=== PATIENT | female | born 1960 | race Caucasian/White ===

== ENCOUNTER → 2016-09-10 | Outpatient (CLI) | payer MEDICARE, OTHER ==
--- NOTE | 2016-09-10 10:33 | ECHOF ---
Referral Reason:I21.19 abn ekg MEASUREMENTS -------- HEIGHT: 165.1 cm WEIGHT: 68.0 kg BP: IVSd: 1.1 cm (0.6 - 1.1) LVIDd: 4.1 cm (3.9 - 5.3) LVPWd: 1.2 cm (0.6 - 1.1) IVSs: 1.3 cm LVIDs: 3.3 cm LVPWs: 1.1 cm LAESV Index (A-L): 26.05 ml/m Ao Diam: 3.2 cm (2.0 - 3.7) AV Cusp: 1.4 cm (1.5 - 2.6) LA Diam: 3.3 cm (2.7 - 3.8) MV EXCURSION: 15.488 mm (> 18.000) MV EF SLOPE: 67 mm/s (70 - 150) EPSS: 0.5 cm MV E Abhishek: 0.39 m/s MV DecT: 229 ms MV A Abhishek: 0.50 m/s MV E/A Ratio: 0.78 RAP: 5.00 mmHg RVSP: 23.31 mmHg FINDINGS -------- Sinus rhythm. This was a technically adequate study. There is mild concentric left ventricular hypertrophy. Overall left ventricular systolic function is low-normal with, an EF between 50 - 55 %. The right ventricle is normal in size. Normal LA size by volume 22+/-6 ml/m2. The right atrial size is normal. There is mild aortic valve sclerosis. There is no evidence of aortic regurgitation. The mitral valve leaflets are mildly thickened. Nsef-ly-xuufgydi mitral regurgitation is present. Mild tricuspid regurgitation present. Right ventricular systolic pressure is normal at < 35 mmHg. There is no evidence of pulmonary hypertension. The aortic root size is normal. There is no pericardial effusion. CONCLUSIONS -------- 1. There is mild concentric left ventricular hypertrophy. 2. The aortic root size is normal. 3. There is no pericardial effusion. 4. Overall left ventricular systolic function is low-normal with, an EF between 50 - 55 %. 5. Normal LA size by volume 22+/-6 ml/m2. 6. There is mild aortic valve sclerosis. 7. The mitral valve leaflets are mildly thickened. 8. Jsvq-lp-jricqfoc mitral regurgitation is present. 9. Mild tricuspid regurgitation present. 10. Right ventricular systolic pressure is normal at < 35 mmHg. 11. There is no evidence of pulmonary hypertension. [employer] ATTENDANT: Divine Mccrary RDCS
--- NOTE | 2016-09-10 10:47 | MM ---
Reason for exam: clinical finding. Last mammogram was performed 1 year and 8 months ago. History: Patient is postmenopausal. Family history of breast cancer in maternal grandmother at age 78 and breast cancer in cousin at age 28. Silicone gel implants in both breasts, 1985. Indicated problem(s): pain in both breasts. Physical Findings: Nurse did not find any significant physical abnormalities on exam. MG 3D Diag Mammo Imp W/Cad KEIRY Bilateral CC and MLO view(s) were taken. Prior study comparison: January 22, 2015, mammogram. The breast tissue is heterogeneously dense. This may lower the sensitivity of mammography. There are bilateral breast prothesis. Calcification is around left breast prothesis. No significant new findings when compared with previous films. These results were verbally communicated with the patient and result sheet given to the patient on 09/10/16. ASSESSMENT: Benign, BI-RAD 2 RECOMMENDATION: Routine screening mammogram of both breasts in 1 year.
--- NOTE | 2016-09-10 11:45 | XR ---
EXAMINATION TYPE: XR chest 2V DATE OF EXAM: 09/10/2016 9:33 AM COMPARISON: NONE INDICATION: Hypertension TECHNIQUE: Single frontal view of the chest is obtained. FINDINGS: The heart size is normal. The pulmonary vasculature is normal. The lungs are clear. Note is made of bilateral breast prostheses. IMPRESSION: 1. No acute pulmonary process.
--- NOTE | 2016-09-10 11:46 | XR ---
EXAMINATION TYPE: XR cervical spine comp DATE OF EXAM: 09/10/2016 9:33 AM COMPARISON: NONE HISTORY: Neck pain, hypertension TECHNIQUE: 5 view cervical spine FINDINGS: Bilateral foraminal narrowing. This may be accentuated due to incomplete rotation on the ri ght oblique view. Degenerative disc changes are present C5-6 C6-7. Some endplate spurring posteriorly may be present C4-5 C5-6 C6-7. The prevertebral space normal. Posterior spinal lamellar line is inta ct. Odontoid appears unremarkable. Facet degenerative changes are noted. IMPRESSION: 1. Foraminal narrowing likely greater on the left in the mid to lower cervical spine. However, there is some limitation with incomplete rotation of the right oblique view. 2. Degenerative disc changes mid and lower cervical spine
== END | disposition home or self-care (01) ==
LOC: RADECHMAIN 08:42
PROVIDERS: ATTEND Internal Medicine
DX: I10 Essential (primary) hypertension (principal); I21.19 ST elevation (STEMI) myocardial infarction involving other coronary artery of inferior wall; N64.4 Mastodynia
CPT/HCPCS: 93306; 71020; 72050; G0204; G0279

== ENCOUNTER → 2017-03-13 | Outpatient (CLI) | payer MEDICARE ==
[2017-03-13 17:37] LABS: Basophils # (A) 0.1 k/uL (0-0.2); Basophils % (A) 1 %; CH 33.2; CHCM 35.3; Eosinophils # (A) 0.1 k/uL (0-0.7); Eosinophils % (A) 1 %; HCT 44.5 % (34.0-46.0); HGB 15.1 gm/dL (11.4-16.0); Luc # (Auto) 0.17; Luc % (Auto) 2; Lymphocytes # (A) 4.2 k/uL (1.0-4.8); Lymphocytes % (A) 40 %; MCH 32.1 pg (25.0-35.0); MCV 94.4 fL (80.0-100.0); Monocytes # (A) 0.4 k/uL (0-1.0); Monocytes % (A) 4 %; Neutrophils # (A) 5.6 k/uL (1.3-7.7); Neutrophils % (A) 53 %; RBC 4.71 m/uL (3.80-5.40); RDW 14.4 % (11.5-15.5); WBC 10.5 k/uL (3.8-10.6); WBC (Perox) 10.15
[2017-03-13 17:40] LABS: Ionized Calcium 4.8 mg/dL (4.5-5.3)
[2017-03-13 17:52] LABS: Anion Gap 10 mmol/L; Blood Urea Nitrogen 14 mg/dL (7-17); Calcium 9.2 mg/dL (8.4-10.2); Carbon Dioxide 26 mmol/L (22-30); Chloride 105 mmol/L (98-107); Glucose 104 mg/dL (74-99); Non-African American GFR(MDRD) >60 (>60 ml/min/1.73 sqM); Potassium 4.3 mmol/L (3.5-5.1); Sodium 141 mmol/L (137-145)
== END | disposition home or self-care (01) ==
LOC: LABWHC1 17:20
PROVIDERS: ATTEND Psychiatry & Neurology Vascular Neurology
DX: N18.2 Chronic kidney disease, stage 2 (mild) (principal)
CPT/HCPCS: 36415; 80048; 82330; 85025

== ENCOUNTER → 2017-04-04 | Outpatient (CLI) | payer MEDICARE ==
--- NOTE | 2017-04-05 12:48 | MR ---
EXAMINATION TYPE: MR brain wo con DATE OF EXAM: 04/04/2017 COMPARISON: 02/23/2015 HISTORY: Encephalopathy, unspecified CONTRAST: Performed utilizing 0 mL intravenous Gadavist gadolinium contrast. TECHNIQUE: Multiplanar, multiecho imaging on a 3.0 Jennie magnet is performed through the brain. Stud y is performed within 24 hours of arrival to the hospital. The craniovertebral junction is normal. The pituitary is normal. Diffusion-weighted imaging is performed. No abnormal hyperintensity is present to suggest an acute i ntracranial infarct or acute ischemic change. White matter changes are in the periventricular region especially noted through the right posterior p arietal and occipital regions. Additional punctate areas are scattered through the frontal lobes bila terally. Centrum semiovale and subcortical white matter changes are evident. Findings are nonspecific . Multiple sclerosis, microvascular ischemic change vasculitis and Lyme disease could be considered. Ventricles and sulci are slightly prominent for the patient age. This exam is compared with 2014. Findings appear more extensive over the interval. Consider additiona l workup with laboratory findings clinical findings and postcontrast MRI. IMPRESSIONS: 1. Increasing scattered white matter changes throughout the brain. Differential is discussed above. F indings are mildly progressive from 2015.
== END | disposition home or self-care (01) ==
LOC: RADMRIMAIN 14:14
PROVIDERS: ATTEND Psychiatry & Neurology Vascular Neurology
DX: R90.82 White matter disease, unspecified (principal)
CPT/HCPCS: 70551

== ENCOUNTER → 2018-04-06 | Outpatient (CLI) | payer MEDICARE ==
--- NOTE | 2018-04-07 01:41 | XR ---
EXAMINATION TYPE: XR chest 2V DATE OF EXAM: 04/06/2018 COMPARISON: 09/10/2016 HISTORY: 57-year-old female presurgical evaluation, hypertension, history of cancer TECHNIQUE: Frontal and lateral views FINDINGS: The cardiomediastinal silhouette, aorta, and pulmonary vasculature are within normal limits. Hazy low er lung densities related to overlying soft tissue. Lungs and pleural spaces are clear. Bilateral anum ast implants are demonstrated. IMPRESSION: Stable exam without acute cardiopulmonary process.
== END | disposition home or self-care (01) ==
LOC: RADXRMAIN 16:13
PROVIDERS: ATTEND Internal Medicine
DX: I10 Essential (primary) hypertension (principal)
CPT/HCPCS: 71046

== ENCOUNTER 2018-04-23 14:13 | Inpatient (IN) | payer MEDICARE ==
[2018-04-23 16:51] LABS: Basophils % (A) 1 %; Eosinophils # (A) 0.1 k/uL (0-0.7); Eosinophils % (A) 2 %; HGB 11.9 gm/dL (11.4-16.0); Lymphocytes # (A) 2.2 k/uL (1.0-4.8); Lymphocytes % (A) 37 %; MCH 30.7 pg (25.0-35.0); MCHC 32.9 g/dL (31.0-37.0); MCV 93.1 fL (80.0-100.0); Mean Platelet Volume 7.3; Monocytes # (A) 0.2 k/uL (0-1.0); Monocytes % (A) 4 %; Neutrophils # (A) 3.2 k/uL (1.3-7.7); Neutrophils % (A) 54 %; Platelet Count 210 k/uL (150-450); RBC 3.87 m/uL (3.80-5.40); RDW 13.8 % (11.5-15.5); WBC 5.9 k/uL (3.8-10.6)
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
[2018-04-23 16:57] LABS: Albumin 3.8 g/dL (3.5-5.0); Potassium 4.1 mmol/L (3.5-5.1); Total Bilirubin 0.4 mg/dL (0.2-1.3); Total Protein 6.4 g/dL (6.3-8.2)
[2018-04-23 17:00] LABS: Partial Thromboplastin Time 23.4 sec (22.0-30.0); Prothrombin Time 9.7 sec (9.0-12.0)
[2018-04-23 17:14] LABS: Creatine Kinase MB 2.8 ng/mL (0.0-2.4)
[2018-04-23 17:15] LABS: Troponin I 0.047 ng/mL (0.000-0.034)
--- NOTE | 2018-04-23 17:54 | XR ---
EXAMINATION TYPE: XR chest 2V DATE OF EXAM: 04/23/2018 COMPARISON: April 06, 2018 HISTORY: Altered mental status TECHNIQUE: Frontal and lateral views of the chest are obtained. FINDINGS: Heart and mediastinum are normal. Lungs are clear. Costophrenic angles are clear. There ar e bilateral breast implants with calcification. IMPRESSION: No active cardiopulmonary disease. No change.
--- NOTE | 2018-04-23 17:56 | CT ---
EXAMINATION TYPE: CT brain wo con DATE OF EXAM: 04/23/2018 COMPARISON: None HISTORY: Confusion. CT DLP: 1017.4 mGycm Automated exposure control for dose reduction was used. FINDINGS: Ventricles of normal size. There is no mass effect nor midline shift. There is no sign of intracrania l hemorrhage. The calvarium is intact. IMPRESSION: NEGATIVE HEAD CT SCAN.
[2018-04-23] MEDS ORDERED: NALOXONE 0.4 MG/ML 1 ML VIAL IV PRN (18:35)
[2018-04-23] MEDS ORDERED: ASPIRIN 81 MG PO STA (18:35)
[2018-04-23 22:42] VITALS: BMI 29.0
[2018-04-24] MEDS: CYCLOBENZAPRINE 10 MG TAB PO SCH ×2 (00:08→22:04)
[2018-04-24] MEDS: TOPIRAMATE 25 MG TAB PO SCH ×2 (00:09→22:04)
[2018-04-24] MEDS: HYDROcodone/APAP 10-325MG 1 EACH TAB PO PRN ×2 (00:09→22:04)
[2018-04-24] MEDS: PREGABALIN 75 MG CAP PO SCH ×3 (00:09→22:04)
--- NOTE | 2018-04-24 01:13 | HP ---
HISTORY AND PHYSICAL DATE OF SERVICE: 04/23/2018. CHIEF COMPLAINT: Numbness of the right hand, memory problems, change in mental status. HISTORY OF PRESENT ILLNESS: This 57-year-old woman with a past medical history of multiple medical problems including hypertension, GERD, migraines, depression, bipolar, being followed by primary physician, Dr. Gordo Mata in the outpatient setting, was complaining of numbness of the right hand. Patient also had change in mental status. Family was concerned. Patient was [facility] to [facility] and admitted for further evaluation and treatment. The initial CT scan of the brain showed no acute abnormality. MRI is pending at this time. There is no history of fever, rigors. No history of headache, loss of consciousness or seizures. PAST MEDICAL HISTORY: History of hypertension, GERD, migraines, bipolar, depression. MEDICATIONS: Prior to admission include home medications: 1. Topamax 70 mg at bedtime. 2. Crestor 10 mg daily. 3. Propranolol 60 mg b.i.d. 4. Lyrica 150 mg b.i.d. 5. Omeprazole 20 mg daily. 6. Icard 10 mg daily p.r.n. 7. Flexeril 10 mg at bedtime. 8. Celexa 40 mg daily. ALLERGIES: IODINE, NITROUS OXIDE. FAMILY HISTORY: No history of heart disease or strokes in the family. SOCIAL HISTORY: History of occasional smoking. REVIEW OF SYSTEMS: ENT: As mentioned earlier. CARDIOVASCULAR: No angina. RESPIRATORY: No cough or hemoptysis. GI: No nausea or vomiting. : No dysuria or hematuria. NERVOUS SYSTEM: As mentioned earlier. IMMUNOLOGY:No history of asthma. MUSCULOSKELETAL: As mentioned earlier. DERMATOLOGY: As mentioned earlier. ENDOCRINE: No history of diabetes or hypothyroidism. PSYCHIATRY: As mentioned earlier. PHYSICAL EXAMINATION: Alert, oriented x3. Pulse 75, blood pressure 105/72, respirations 16, temperature 97.2, pulse ox 94% on room air. HEENT: Conjunctivae normal. Oral mucosa moist. NECK: No jugular venous distention. No lymph node enlargement. CARDIOVASCULAR: S1 and S2 muffled. LUNGS: Breath sounds diminished in the bases. Few scattered rhonchi. No crackles. ABDOMEN: Soft, nontender. EXTREMITIES: Legs no edema. NERVOUS SYSTEM: Higher functions as mentioned. Moves all limbs equally. LYMPHATICS: No lymph nodes palpable in the neck, axillae or groin. SKIN: No ulcers or rashes. LABS: CBC within normal limits. Chloride is 108. Troponin 0.047. Total creatinine kinase ntd ASSESSMENT: 1. Numbness and tingling of the right hand, possible acute transient ischemic attack. 2. Troponin 0.04; rule out acute coronary event. 3. Increased creatine kinase. 4. Bipolar depression. 5. Gastroesophageal reflux disease. 6. Hypertension. 7. Migraines. 8. Hysterectomy. RECOMMENDATIONS: Recommend to continue current medications and continue with monitoring and symptomatic treatment. At this time I would recommend Neurology and Psychiatric consultations. Guarded prognosis because of multiple complex medical issues. Further recommendations to follow. 1. The current copy Dr. Genoveva Mata is office. MMERISL / IJN: [id number] / HUY
[2018-04-24] MEDS: PROPRANOLOL LA 60 MG CAP.SA.24H PO SCH ×2 (01:21→10:48)
[2018-04-24 06:54] LABS: Basophils % (A) 1 %; Eosinophils # (A) 0.1 k/uL (0-0.7); Eosinophils % (A) 2 %; HCT 33.9 % (34.0-46.0); HGB 11.3 gm/dL (11.4-16.0); Lymphocytes % (A) 41 %; MCH 30.7 pg (25.0-35.0); MCHC 33.3 g/dL (31.0-37.0); MCV 92.1 fL (80.0-100.0); Mean Platelet Volume 6.9; Monocytes # (A) 0.2 k/uL (0-1.0); Monocytes % (A) 4 %; Neutrophils # (A) 2.4 k/uL (1.3-7.7); Neutrophils % (A) 49 %; Platelet Count 196 k/uL (150-450); RBC 3.68 m/uL (3.80-5.40); RDW 13.6 % (11.5-15.5); WBC 4.9 k/uL (3.8-10.6)
[2018-04-24] MEDS: PANTOPRAZOLE 40 MG TABLET PO SCH (07:16)
[2018-04-24 07:19] LABS: Appearance,Urine Clear (Clear); Bacteria,Urine Rare /hpf; Bilirubin,Urine Negative (Negative); Blood,Urine Trace (Negative); Color,Urine Light Yellow; Glucose,Urine (UA) Negative (Negative); Ketones,Urine Negative (Negative); Leukocyte Esterase,Urine Large (Negative); Mucus,Urine Rare /hpf; Nitrite,Urine Negative (Negative); PH, Urine 5.5 (5.0-8.0); Protein,Urine Negative (Negative); RBC,Urine 3 /hpf (0-5); Specific Gravity,Urine 1.006 (1.001-1.035); Squamous Epithelial Cell,Urine 1 /hpf (0-4); Urobilinogen,Urine <2.0 mg/dL (<2.0); WBC,Urine 15 /hpf (0-5)
[2018-04-24 07:24] LABS: Amphetamine Screen,Urine Not Detected (NotDetected); Barbiturate Screen,Urine Not Detected (NotDetected); Benzodiazepines Screen,Urine Not Detected (NotDetected); Cocaine Screen,Urine Not Detected (NotDetected); Methadone Screen, Urine Not Detected (NotDetected); Opiate Screen,Urine Detected (NotDetected); Oxycodone Screen, Urine Not Detected (NotDetected); Phencyclidine Screen,Urine Not Detected (NotDetected); Tricyclic Antidepressant,Urine Detected (NotDetected); Urn Cannabinoid Scrn Not Detected (NotDetected)
[2018-04-24 07:36] LABS: Calcium 8.9 mg/dL (8.4-10.2)
[2018-04-24] MEDS: CITALOPRAM HYDROBROMIDE 20 MG TAB PO SCH (08:23)
[2018-04-24] MEDS: ASPIRIN 325 MG TAB PO SCH (08:23)
[2018-04-24] MEDS: ATORVASTATIN 20 MG TAB PO SCH (08:23)
[2018-04-24] MEDS: HEPARIN SODIUM,PORCINE 5,000 UNIT/ML 1 ML VIAL SQ SCH ×2 (08:25→22:04)
[2018-04-24] MEDS ORDERED: PREGABALIN 75 MG CAP PO SCH (09:00)
[2018-04-24] MEDS ORDERED: PROPRANOLOL LA 60 MG CAP.SA.24H PO SCH (09:00)
--- NOTE | 2018-04-24 11:59 | MR ---
EXAMINATION TYPE: MR brain wo con DATE OF EXAM: 04/24/2018 11:41 AM. COMPARISON: Previous study dated 04/04/2017. HISTORY: Altered mental status Technique: Multiplanar, multiecho imaging of the brain was obtained without intravenous contrast. FINDINGS: Midline structures are unremarkable. There is a normal craniocervical junction. Echoplanar diffusion imaging is normal. There are normal vascular flow voids. The orbits are unremarkable. There is no evidence of a CP angle mass lesion. There are approximately 30 high signal lesions in the deep white matter tracts and subcortical white matter of both cerebral hemispheres. These may progressed slightly from previous. There is no mass ef fect, midline shift or intracranial blood IMPRESSION: 1. NO ACUTE INTRACRANIAL ABNORMALITY. 2. THERE IS PERHAPS SLIGHT INCREASE IN THE NUMBER OF WHITE MATTER LESIONS ON THE FLAIR DATASET IN [facility] WITH THE PREVIOUS EXAMINATION. A DIFFERENTIAL DIAGNOSIS INCLUDES DEMYELINATION, SMALL VESSEL DISEASE, HYPERTENSION, MIGRAINE HEADACHES AND LYME'S DISEASE.
[2018-04-24] MEDS ORDERED: CYCLOBENZAPRINE 10 MG TAB PO SCH (21:00)
[2018-04-24] MEDS ORDERED: TOPIRAMATE 25 MG TAB PO SCH (21:00)
--- NOTE | 2018-04-24 21:59 | PN ---
PROGRESS NOTE DATE OF SERVICE: 04/24/2018 HISTORY: This 57-year-old woman was admitted with weakness and numbness, also had MRI done. The brain MRA done today showed no acute abnormality, mild white matter lesion was suspected. Neurology is following the patient. No chest pain. No palpitations. Patient also has multiple psychiatric issues also. EXAM: Alert and oriented x3. Pulse 75, blood pressure 115/83, respirations 18, temp 98.1, pulse ox 98% on room air. HEENT: Conjunctivae normal. NECK: Supple. CARDIOVASCULAR: S1 and S2 muffled. LUNGS: Breath sounds diminished at the bases. No rhonchi, no crackles. ABDOMEN: Soft, nontender. EXTREMITIES: Legs no edema. No cyanosis. NERVOUS SYSTEM: No focal deficits. LABS: WBC 4.2, hemoglobin 11.3. UA shows UTI. ASSESSMENT: 1. Numbness and tingling of the right hand, possible transient ischemic attack. 2. Urinary tract infection. 3. White matter lesion on MRI scan. 4. Troponin 0.04, rule out acute coronary event. 5. Increased creatinine kinase. 6. Bipolar depression. 7. Gastroesophageal reflux disease. 8. Hypertension. 9. Migraines. 10.History of hysterectomy. RECOMMENDATIONS: Recommend to continue current medications, continue symptomatic treatment. Otherwise at this time I would also recommend a Neurology consultation. We will initiate broad- spectrum IV antibiotics. Otherwise, I would also recommend a cardiology consultation as well. Guarded prognosis because of multiple complex medical issues. Further recommendations to follow. MMODL / IJN: [id number] /
[2018-04-25] MEDS: PROPRANOLOL LA 60 MG CAP.SA.24H PO SCH ×3 (06:07→21:21)
[2018-04-25] MEDS: PANTOPRAZOLE 40 MG TABLET PO SCH (06:12)
[2018-04-25 07:45] LABS: Basophils % (A) 0 %; Eosinophils # (A) 0.1 k/uL (0-0.7); Eosinophils % (A) 3 %; HCT 34.1 % (34.0-46.0); HGB 11.4 gm/dL (11.4-16.0); Lymphocytes # (A) 1.5 k/uL (1.0-4.8); Lymphocytes % (A) 35 %; MCH 30.6 pg (25.0-35.0); MCHC 33.5 g/dL (31.0-37.0); MCV 91.5 fL (80.0-100.0); Monocytes # (A) 0.2 k/uL (0-1.0); Monocytes % (A) 6 %; Neutrophils # (A) 2.3 k/uL (1.3-7.7); Neutrophils % (A) 53 %; Platelet Count 210 k/uL (150-450); RBC 3.73 m/uL (3.80-5.40); WBC 4.4 k/uL (3.8-10.6)
[2018-04-25 07:56] LABS: Calcium 8.9 mg/dL (8.4-10.2); Potassium 3.9 mmol/L (3.5-5.1)
[2018-04-25] MEDS: ASPIRIN 325 MG TAB PO SCH (09:13)
[2018-04-25] MEDS: CITALOPRAM HYDROBROMIDE 20 MG TAB PO SCH (09:13)
[2018-04-25] MEDS: HEPARIN SODIUM,PORCINE 5,000 UNIT/ML 1 ML VIAL SQ SCH ×2 (09:13→21:15)
[2018-04-25] MEDS: ATORVASTATIN 20 MG TAB PO SCH (09:13)
[2018-04-25] MEDS: PREGABALIN 75 MG CAP PO SCH ×2 (09:13→21:15)
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
[2018-04-25 12:31] VITALS: RESP 18
--- NOTE | 2018-04-25 14:36 | CONS ---
CONSULTATION DATE OF SERVICE/DICTATION: 04/25/2018. IDENTIFYING DATA: This patient is a 57-year-old single female admitted to the hospital with a complaint of weakness. HISTORY OF PRESENT ILLNESS: The patient presents with a complaint of weakness. She is being worked up for a transient ischemic attack. She was incidentally found to have an urinary tract infection. She reportedly has a mild lesion in the white matter upon MRI of her brain. The patient states that 2 weeks prior to coming to the hospital she had episodes of having some confusion, word-finding difficulty. Her is present at bedside. He states that during this time, his will put words together that do not seem to belong. She will describe experiences that appear to be hallucinations. She is endorsing no current hallucinations. She states that she has received care in the mental health unit twice in the past several years ago and has worked with an outpatient clinic in the area, but is currently not participating. She is reporting no suicidal or homicidal ideation, intent, or plan. She is endorsing no current auditory or visual hallucinations or any specific delusions. She indicates her memory has been declining over the last year. She is reporting a possible history of hypomanic episodes in the past, but does not clearly define those episodes. Her significant other is present at bedside. Neither of them express any acute safety concerns. PAST PSYCHIATRIC HISTORY: The patient reportedly was on the mental health unit twice in the past. The last admission was over 5 years ago. She reports a history of a suicide attempt. She overdosed prior to that. She has worked with [facility] in the past and seen 2 therapists and the nurse practitioner. She is currently prescribed Celexa 40 mg daily and has been on that for 5 years. She previously has been on Prozac, Zoloft, Depakote. She states she also takes Seroquel 100 mg at bedtime. PAST MEDICAL HISTORY: Please refer to internal medicine history and physical. CHEMICAL DEPENDENCY HISTORY: None reported. MENTAL STATUS EXAM: The patient is alert. She is and overweight female seated upright in bed. She is pleasant and cooperative. She is dressed in hospital gowns. Eye contact is appropriate. Speech is fluent spontaneous, nonpressured. She reports her mood is better today. She still has concern as to why she had those symptoms prior to this admission. She is endorsing no suicidal or homicidal ideation, intent, or plan. She is endorsing no auditory or visual hallucinations. No specific delusions. There is no observed evidence of psychosis. She demonstrates no tangential thinking or flight of ideas and does not appear hypomanic or manic. She will have pauses at times in answering questions and she will state she cannot remember. She is oriented to person, place, and date. She demonstrates no verbal or physical aggressiveness. No abnormal repetitive movements observed. IMPRESSION: 1. Depression unspecified rule out major depressive disorder versus bipolar depression, rule out recent elements of delirium. 2. Recent complaint of weakness, rule out transient ischemic attack, diagnosed urinary tract infection, unspecified, mild white matter lesion with MRI. PLAN: The patient does not require inpatient psychiatric care. She is strongly encouraged to follow up with her outpatient counseling center again and with a psychiatric prescriber. It may be that the Celexa needs to be changed as she has been on it for several years. More time should be spent to see if there is a bipolar component and if the Seroquel is necessary. We discussed that the recent urinary tract infection could contribute to symptoms she has recently explaining. We also discussed having her outpatient clinician perform some memory testing on her as well. She is encouraged to abstain from any use of [place] and Flexeril if possible as they can cloud her sensorium. She is instructed to return to the hospital with any acute safety concerns. MMODL / IJN: [id number] /
--- NOTE | 2018-04-25 20:24 | PN ---
PROGRESS NOTE DATE OF SERVICE: 04/25/2018 This 57-year-old woman who was admitted with numbness and tingling of the right hand is ruling out the possibility of TIA. Brain MRI has been done which showed no acute abnormality. Slight increase number of white matter lesions. No chest pain. No palpitations. No fever. EXAM: Alert and oriented x3. Pulse 75, blood pressure 130/75, respiration 18, temperature 97.6, pulse ox 98% on room air. HEENT: Conjunctivae normal. NECK: No jugular venous distention. CARDIOVASCULAR: S1, S2. RESPIRATORY: Breath sounds diminished in the bases. No rhonchi, no crackles. ABDOMEN: Soft, nontender. LEGS: No edema. NERVOUS SYSTEM: No focal deficits. LABS: WBC 4.2, hemoglobin 11.4, sodium 142, potassium 3.9. Troponins are noted. Triglycerides are 348. UA UTI. Drug screen noted. Syphilis is negative. ASSESSMENT: 1. Numbness and tingling of the right side possible acute transient ischemic attack. 2. Urinary tract infection. 3. White matter lesions in the MRI scan. 4. Troponin 0.04, rule out acute coronary event. 5. Increased creatine kinase. 6. Bipolar, depression. 7. Gastroesophageal reflux disease. 8. Hypertension. 9. Migraines. 10.Hysterectomy. RECOMMENDATIONS AND DISCUSSION: I recommend to continue the current management and symptomatic treatment. Otherwise at this time I recommend Cardiology and Neurology consultations. Guarded prognosis because of multiple complex medical issues. Further recommendations to follow. See orders for details. MMODL / IJN: [id number] /
[2018-04-25] MEDS: CYCLOBENZAPRINE 10 MG TAB PO SCH (21:14)
[2018-04-25] MEDS: TOPIRAMATE 25 MG TAB PO SCH (21:15)
[2018-04-25] MEDS: HYDROcodone/APAP 10-325MG 1 EACH TAB PO PRN (23:35)
[2018-04-26] MEDS: PANTOPRAZOLE 40 MG TABLET PO SCH (06:28)
[2018-04-26 07:18] LABS: Basophils % (A) 1 %; Eosinophils # (A) 0.2 k/uL (0-0.7); Eosinophils % (A) 5 %; HCT 37.1 % (34.0-46.0); HGB 12.3 gm/dL (11.4-16.0); Lymphocytes # (A) 1.9 k/uL (1.0-4.8); Lymphocytes % (A) 41 %; MCH 30.5 pg (25.0-35.0); MCHC 33.2 g/dL (31.0-37.0); Mean Platelet Volume 7.1; Monocytes # (A) 0.2 k/uL (0-1.0); Monocytes % (A) 3 %; Neutrophils # (A) 2.2 k/uL (1.3-7.7); Neutrophils % (A) 47 %; Platelet Count 234 k/uL (150-450); RBC 4.04 m/uL (3.80-5.40); RDW 14.2 % (11.5-15.5); WBC 4.7 k/uL (3.8-10.6)
[2018-04-26 07:31] LABS: Anion Gap 8 mmol/L; Blood Urea Nitrogen 9 mg/dL (7-17); Calcium 9.2 mg/dL (8.4-10.2); Carbon Dioxide 22 mmol/L (22-30); Chloride 113 mmol/L (98-107); Glucose 100 mg/dL (74-99); Potassium 4.1 mmol/L (3.5-5.1); Sodium 143 mmol/L (137-145)
[2018-04-26] MEDS: ASPIRIN 325 MG TAB PO SCH (09:04)
[2018-04-26] MEDS: HEPARIN SODIUM,PORCINE 5,000 UNIT/ML 1 ML VIAL SQ SCH (09:04)
[2018-04-26] MEDS: PREGABALIN 75 MG CAP PO SCH (09:04)
[2018-04-26] MEDS: PROPRANOLOL LA 60 MG CAP.SA.24H PO SCH (09:04)
[2018-04-26] MEDS: CITALOPRAM HYDROBROMIDE 20 MG TAB PO SCH (09:04)
[2018-04-26] MEDS: ATORVASTATIN 20 MG TAB PO SCH (09:04)
[2018-04-26 09:19] VITALS: TEMP 98.2
[2018-04-26 10:23] LABS: HIV 1 AB Non-Reactive (Non-Reactive); HIV AB P24 Non-Reactive (Non-Reactive); HIV P24 AG Non-Reactive (Non-Reactive)
[2018-04-26 13:28] VITALS: BP 141/92; PULSE 91
--- NOTE | 2018-04-26 14:52 | P.PN ---
Subjective Progress Note Date: 04/26/18 this is a 57-year-old female patient with past medical history significant for hypertension, hyperlipidemia, who was admitted to the hospital with possible TIA. Neurology workup is still in progress. MRI of the brain did not reveal any acute abnormalities and CTA of the brain did not reveal any acute abnormalities. We got involved in her care because of slightly abnormal cardiac enzymes with mildly abnormal troponins.Echocardiogram with Doppler study was performed but is yet pending.patient was seen and examined this morning, feels well, no complaints overall. Hemodynamically she is stable.Blood pressure 130/90 with a heart rate of 80. Objective - Vital Signs Vital signs: Vital Signs Temp 98.2 F 04/26/18 12:00 Pulse 91 04/26/18 12:00 Resp 18 04/26/18 12:00 BP 141/92 04/26/18 12:00 Pulse Ox 92 L 04/26/18 12:00 Intake & Output 04/25/18 04/26/18 04/26/18 18:59 06:59 18:59 Intake Total 180 480 Balance 180 480 Weight 83.9 kg Intake: Oral 180 480 Other: Voiding Method Toilet Toilet Toilet # Voids 3 1 - Exam PHYSICAL EXAMINATION: GENERAL:this 89-year-old female in no acute distress at the time of my examination HEENT: Head is atraumatic, normocephalic. Pupils equal, round. Sclera anicteric. Conjunctiva are clear. Mucous membranes of the mouth are moist. Neck is supple. There is no elevated jugular venous pressure.No carotid bruit is heard. HEART EXAMINATION: [Heart S1, S2 normal. No murmur or gallop heard.] CHEST EXAMINATION:[ Lungs are clear to auscultation and precussion. No chest wall tenderness is noted on palpation or with deep breathing.] ABDOMEN: [ Soft, nontender. Bowel sounds are heard. No organomegaly noted]. EXTREMITIES:[ 2+ peripheral pulses with no evidence of peripheral edema and no calf tenderness noted]. NEUROLOGIC [patient is awake, alert and oriented X3.] . - Labs CBC & Chem 7: 04/26/18 06:34 04/26/18 06:34 Labs: Abnormal Lab Results - Last 24 Hours (Table) 04/26/18 Range/Units 06:34 Chloride 113 H (98-107) mmol/L Glucose 100 H (74-99) mg/dL Assessment and Plan Plan: Assessment and Plan #1 possible TIA, neurology workup in progress #2 mildly abnormal cardiac enzymes and troponins, echo pending #3 hypertension #4 dyslipidemia #5 history of smoking Plan From cardiology's perspective, we'll review the echocardiogram with Doppler study, if the LV function is normal patient may be able to be discharged home, we'll make her a follow-up appointment to see Dr. Alvarado in the office post discharge. DNP note has been reviewed, I agree with a documented findings and plan of care. Patient was seen and examined.
--- NOTE | 2018-04-26 19:26 | ECHOF ---
Referral Reason:elevated trop MEASUREMENTS -------- HEIGHT: 167.6 cm WEIGHT: 84.4 kg BP: 146/88 RVIDd: 2.9 cm (< 3.3) IVSd: 0.9 cm (0.6 - 1.1) LVIDd: 3.7 cm (3.9 - 5.3) LVPWd: 1.0 cm (0.6 - 1.1) IVSs: 1.4 cm LVIDs: 2.6 cm LVPWs: 1.6 cm LA Diam: 2.6 cm (2.7 - 3.8) LAESV Index (A-L): 23.71 ml/m Ao Diam: 3.1 cm (2.0 - 3.7) AV Cusp: 1.7 cm (1.5 - 2.6) EPSS: 0.5 cm MV E Abhishek: 0.61 m/s MV DecT: 343 ms MV A Abhishek: 1.02 m/s MV E/A Ratio: 0.60 RAP: 5.00 mmHg RVSP: 30.29 mmHg MV EF SLOPE: 86.16 mm/s (70 - 150) MV EXCURSION: 1.46 cm (> 18.000) FINDINGS -------- Sinus rhythm. This was a technically adequate study. The left ventricular size is normal. Left ventricular wall thickness is normal. Overall left vent ricular systolic function is normal with, an EF between 55 - 60 %. The right ventricle is normal in size. Normal LA size by volume 22+/-6 ml/m2. The right atrium is normal in size. The aortic valve is trileaflet and appears structurally normal. Mild mitral annular calcification present. Mild tricuspid regurgitation present. Right ventricular systolic pressure is normal at < 35 mmHg. Trace/mild (physiologic) pulmonic regurgitation. The aortic root size is normal. IVC Not well visulized. There is no pericardial effusion. CONCLUSIONS -------- 1. Sinus rhythm. 2. This was a technically adequate study. 3. The left ventricular size is normal. 4. Left ventricular wall thickness is normal. 5. Overall left ventricular systolic function is normal with, an EF between 55 - 60 %. 6. The right ventricle is normal in size. 7. Normal LA size by volume 22+/-6 ml/m2. 8. The right atrium is normal in size. 9. The aortic valve is trileaflet and appears structurally normal. 10. Mild mitral annular calcification present. 11. Mild tricuspid regurgitation present. 12. Right ventricular systolic pressure is normal at < 35 mmHg. 13. Trace/mild (physiologic) pulmonic regurgitation. 14. The aortic root size is normal. 15. IVC Not well visulized. 16. There is no pericardial effusion. ROLL CONTOUR GRINDER: KRISTINE Ramirez
--- NOTE | 2018-04-27 11:31 | DS ---
DISCHARGE SUMMARY DATE OF SERVICE: 04/26/2018 FINAL DIAGNOSES: 1. Numbness and tingling of the right side possible acute transient ischemic attack. 2. Urinary tract infection. 3. White matter lesions on the MRI scan. 4. Troponin 0.04, rule out coronary artery disease. 5. Increased creatine kinase. 6. Bipolar depression. 7. Gastroesophageal reflux disease. 8. Hypertension. 9. History of migraines. 10.History of hysterectomy. DISCHARGE DISPOSITION: The patient will be discharged in stable condition with guarded prognosis. HISTORY OF PRESENT ILLNESS: This 57-year-old woman with a past medical history of multiple medical problems, was admitted with multiple symptomatology as mentioned was seen by Cardiology and cleared for discharge. I would recommend also outpatient follow up with Cardiology and Neurology. On exam, vital signs are stable. CARDIOVASCULAR: S1, S2 muffled. ABDOMEN: Soft. NERVOUS SYSTEM: No focal deficits. DISCHARGE ADVICE: 1. Diet is cardiac diet. 2. Activity limited until followup. 3. Follow up with Dr. Mata in 2 to 3 days. 4. Follow up with Dr. Pritchett and Cardiology as recommended for outpatient workup. MEDICATIONS: 1. Celexa 40 mg daily. 2. Flexeril 10 mg q.h.s. 3. Hydrocodone 10 mg p.o. daily. 4. Omeprazole 20 mg daily. 5. Lyrica 150 mg p.o. b.i.d. 6. Propranolol 60 mg p.o. b.i.d. 7. Crestor 10 mg p.o. daily. 8. Topamax 75 mg q.h.s. 9. Ecotrin 81 mg daily. 10.Folic acid 1 mg daily. 11.Multivitamins one p.o. daily. 12.Thiamine 100 mg p.o. daily. Once again, the patient will be discharged in a stable condition with guarded prognosis. MMODL / IJN: [id number] /
== END 2018-04-26 16:52 | disposition home or self-care (01) | DRG 69 ==
LOC: EC 14:13 → 3SCARD 18:35 → OBSVTOIN 04-25 15:49
PROVIDERS: ADMIT Hospitalist; ATTEND Hospitalist
DX: G45.9 Transient cerebral ischemic attack, unspecified (principal); N39.0 Urinary tract infection, site not specified; F31.9 Bipolar disorder, unspecified; E78.5 Hyperlipidemia, unspecified; G43.909 Migraine, unspecified, not intractable, without status migrainosus; I10 Essential (primary) hypertension; M54.30 Sciatica, unspecified side; M54.9 Dorsalgia, unspecified; K21.9 Gastro-esophageal reflux disease without esophagitis; R79.89 Other specified abnormal findings of blood chemistry; R74.8 Abnormal levels of other serum enzymes; G56.30 Lesion of radial nerve, unspecified upper limb; R90.82 White matter disease, unspecified; F17.210 Nicotine dependence, cigarettes, uncomplicated; I25.10 Atherosclerotic heart disease of native coronary artery without angina pectoris; K58.0 Irritable bowel syndrome with diarrhea; Z91.5 Personal history of self-harm; Z82.49 Family history of ischemic heart disease and other diseases of the circulatory system; Z79.899 Other long term (current) drug therapy; Z98.51 Tubal ligation status; Z88.8 Allergy status to other drugs, medicaments and biological substances; Z90.710 Acquired absence of both cervix and uterus; Z82.5 Family history of asthma and other chronic lower respiratory diseases
CPT/HCPCS: 36415; 70450; 70551; 71046; 80048; 80053; 80061; 80306; 81001; 82550; 82553; 83880; 84443; 84484; 85025; 85610; 85730; 86780; 87390; 93005; 93306; 93880; 99285

== ENCOUNTER → 2018-04-23 | Outpatient (CLI) | payer MEDICARE ==
--- NOTE | 2018-04-23 14:24 | US ---
EXAMINATION TYPE: US carotid duplex BILAT DATE OF EXAM: 04/23/2018 COMPARISON: NONE CLINICAL HISTORY: I69.011 MEMORY LOSS, R42 DIZZINESS. EXAM MEASUREMENTS: RIGHT: Peak Systolic Velocity (PSV) cm/sec ----- Right CCA: 101.0 ----- Right ICA: 134.0 ----- Right ECA: 120.0 ICA/CCA ratio: 1.33 RIGHT: End Diastole cm/sec ----- Right CCA: 42.9 ----- Right ICA: 56.6 ----- Right ECA: 37.7 LEFT: Peak Systolic Velocity (PSV) cm/sec ----- Left CCA: 148.0 ----- Left ICA: 203.0 ----- Left ECA: 252.0 ICA/CCA ratio: 1.37 LEFT: End Diastole cm/sec ----- Left CCA: 60.4 ----- Left ICA: 68.8 ----- Left ECA: 97.4 VERTEBRALS (direction of flow): Right Vertebral: Antegrade Left Vertebral: Antegrade Rhythm: Normal Mildly elevated velocities, bilateral plaque noted. IMPRESSION: Sonographic findings suggesting approximately 50% stenosis within the internal carotid a rteries, however the internal carotid artery to common carotid artery ratio is not elevated, likely d ue to overall increased values from underlying hypertension.
== END | disposition home or self-care (01) ==
LOC: RADUSWWP 13:32
PROVIDERS: ATTEND Internal Medicine
DX: I65.23 Occlusion and stenosis of bilateral carotid arteries (principal)
CPT/HCPCS: 93880

== ENCOUNTER 2018-06-30 00:41 | Emergency (ER) | payer MEDICARE ==
[2018-06-30 00:48] VITALS: RESP 16
[2018-06-30] MEDS ORDERED: HYDROcodone/APAP 7.5-325MG 1 EACH TAB PO ONE (01:47)
--- NOTE | 2018-06-30 01:56 | XR ---
EXAMINATION TYPE: XR foot limited RT DATE OF EXAM: 06/30/2018 COMPARISON: NONE HISTORY: Pain TECHNIQUE: 2 views FINDINGS: Metatarsals appear intact. I see no fracture nor dislocation. There is an Achilles calcanea l spur. IMPRESSION: No acute abnormality of the right foot. Nondisplaced fracture distal fibula is noted.
--- NOTE | 2018-06-30 01:56 | XR ---
EXAMINATION TYPE: XR ankle complete RT DATE OF EXAM: 06/30/2018 COMPARISON: NONE HISTORY: Pain TECHNIQUE: 3 views FINDINGS: There is nondisplaced oblique fracture of the distal fibula. There is an Achilles calcaneal spur. I see no fracture of the distal tibia. Ankle mortise is anatomic. IMPRESSION: Acute nondisplaced fracture distal fibula.
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
[2018-06-30] MEDS ORDERED: ACET/COD 300 MG/30 MG STARTER PACK 6 TAB BTL PO STA (02:18)
[2018-06-30 02:48] VITALS: BP 177/107; PULSE 76; TEMP 98.6
== END 2018-06-30 02:25 | disposition home or self-care (01) ==
LOC: EC 00:41
DX: S82.401A Unspecified fracture of shaft of right fibula, initial encounter for closed fracture (principal); K21.9 Gastro-esophageal reflux disease without esophagitis; E78.5 Hyperlipidemia, unspecified; I10 Essential (primary) hypertension; F32.9 Major depressive disorder, single episode, unspecified; F17.200 Nicotine dependence, unspecified, uncomplicated; Z79.899 Other long term (current) drug therapy; Z91.048 Other nonmedicinal substance allergy status; Z88.8 Allergy status to other drugs, medicaments and biological substances; W10.9XXA Fall (on) (from) unspecified stairs and steps, initial encounter; Y93.01 Activity, walking, marching and hiking; Y92.009 Unspecified place in unspecified non-institutional (private) residence as the place of occurrence of the external cause
CPT/HCPCS: 29515; 99283

== ENCOUNTER → 2018-07-09 | Outpatient (CLI) | payer MEDICARE ==
--- NOTE | 2018-07-11 21:41 | MR ---
EXAMINATION TYPE: MR angio head wo/neck wo/w con DATE OF EXAM: 07/09/2018 COMPARISON: Carotid ultrasound 04/23/2018 HISTORY: 57-year-old female Confusion, mental status changes Technique: High-resolution 3-D [id number] imaging of the [place] without contrast. Rotat ional reconstructions generated on a dedicated independent workstation. Subsequent 2-D and 3-D time-o f-flight imaging of the carotid vessels of the neck with 3-D reconstructions. High-resolution coronal sequences of the neck were obtained before and after administration of 7.5 mL intravenous Gadavist g adolinium contrast, again, with 3-D reconstructions generated.. FINDINGS: Head: Dominant right vertebral artery. The vertebral artery is somewhat diminutive in comparison to the ant erior circulation. The bilateral P1 segment posterior cerebral arteries are hypoplastic with large posterior communicati ng arteries compatible with persistent origins.. No significant stenosis, arterial occlusion, or aneurysmal changes seen. NECK: Again, the right vertebral artery is dominant. Suspected direct takeoff of the left vertebral artery directly from the aortic arch. The vessel is nondominant and the proximal third to proximal half of t he vessel is not well demonstrated on this study. The right common and right internal carotid arteries are patent without significant stenosis. There is moderate atherosclerotic narrowing at the left carotid bifurcation and at the origin of the left bifurcation vessels. This results in a moderate, 50% narrowing at the distal CCA at the bifurcat ion, moderate, approximately 60% at this cardiac narrowing at the left carotid bulb, and additional m oderate, just under 70% narrowing at the origin of the left external carotid artery. IMPRESSION: Head: 1. Dominant right vertebral artery. 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 Correlate for any potential chr onic symptoms of vertebrobasilar insufficiency. 2. No significant stenosis, arterial occlusion, or aneurysmal change otherwise seen along the [place]. NECK: 1. Atherosclerotic narrowing at the left bifurcation. There is 50% stenosis at the distal left CCA at the level of the bifurcation, moderate (60%) stenosis in the left carotid bulb, and moderate to bradly re (70%) stenosis in the proximal left ECA. 2. No hemodynamically significant stenosis appreciated in the right ICA. 3. Again, dominant right vertebral artery. The proximal third to proximal half of the left vertebral artery is not well seen and a variant direct takeoff from the aortic arch is suspected.
== END ==
LOC: RADMRIMAIN 20:21
PROVIDERS: ATTEND Internal Medicine
DX: I65.22 Occlusion and stenosis of left carotid artery (principal); I77.89 Other specified disorders of arteries and arterioles
CPT/HCPCS: 82565; 70544; 70549; 36415; A9585

== ENCOUNTER 2019-12-23 09:05 | Day surgery (SDC) | payer MEDICARE ==
[2019-12-22 09:02] VITALS: BMI 24.2
[~2019-12-23 09:05] MED LIST: LACTATED RINGERS 1,000 ML IV SCH
[2019-12-23 10:06] VITALS: RESP 16; TEMP 98.3
[2019-12-23] MEDS ORDERED: PROPOFOL 10 MG/ML 20 ML VIAL IV ONE (11:00)
--- NOTE | 2019-12-23 11:26 | P.PCN ---
Date of Procedure: 12/23/19 Procedure(s) Performed: BRIEF HISTORY: Patient is a 58-year-old pleasant female scheduled for an elective colonoscopy as a part of evaluation of rectal bleeding that lasted for 3 days. She has lower abdominal pain and diarrhea followed by rectal bleeding. Her last colonoscopy was 6 years ago. PROCEDURE PERFORMED: Colonoscopy with snare polyp rectum. PREOPERATIVE DIAGNOSIS: Rectal bleeding of 3 days' duration. IV sedation per Anesthesia. PROCEDURE: After informed consent was obtained, the patient, was brought into the endoscopy unit. IV sedation was administered by Anesthesia under continuous monitoring. Digital rectal examination was normal. Initially the Olympus CF-160 flexible video colonoscope was then inserted in the rectum, gradually advanced into the cecum without any difficulty. Careful examination was performed as the scope was gradually being withdrawn. Ileocecal valve and the appendiceal orifice were visualized and appeared normal. Prep was excellent. Mucosa of the cecum, appeared normal. There was a 1 cm broad-based polyp removed by snare polypectomy. In the descending colon there were 2 polyps measuring 5 mm and 1 cm in size both of which were removed by snare polypectomy. ascending colon, transverse colon, descending colon, sigmoid colon, and rectum appeared normal. Retroflexion was performed in the rectum and no lesions were seen. The patient tolerated the procedure well. IMPRESSION: 1 cm broad-based ascending colon polyp status post polypectomy 5 mm and 1 cm descending colon polyps status post polypectomy RECOMMENDATIONS: Findings of this examination were discussed with the patient as well as her family. She was advised to follow with the biopsy results. If the biopsy shows an adenoma she can have a repeat colonoscopy in 3 years
[2019-12-23 12:12] VITALS: BP 103/66; PULSE 67
== END 2019-12-23 12:44 | disposition home or self-care (01) ==
LOC: ORWHC2ENDO 09:05
PROVIDERS: ATTEND Internal Medicine Gastroenterology
DX: K63.5 Polyp of colon (principal); K62.5 Hemorrhage of anus and rectum; K58.0 Irritable bowel syndrome with diarrhea; I10 Essential (primary) hypertension; F41.9 Anxiety disorder, unspecified; F32.9 Major depressive disorder, single episode, unspecified; G43.909 Migraine, unspecified, not intractable, without status migrainosus; G56.32 Lesion of radial nerve, left upper limb; F17.210 Nicotine dependence, cigarettes, uncomplicated; E78.5 Hyperlipidemia, unspecified; Z79.82 Long term (current) use of aspirin; Z79.899 Other long term (current) drug therapy; Z98.890 Other specified postprocedural states; Z88.8 Allergy status to other drugs, medicaments and biological substances; Z91.048 Other nonmedicinal substance allergy status
CPT/HCPCS: 88305; 45385; J2704